=== PATIENT | female | born 1965 | race Caucasian/White ===

== ENCOUNTER → 2016-07-03 | Day surgery (SDC) | payer BC ==
[~2016-07-03] MED LIST: HYDROCHLOROTHIA25 MG PO; MULTI VITAMIN1 EACH PO; NEXIUM 24HR22.3 MG PO; TENORMIN25 MG PO
--- NOTE | ~2016-07-03 | OR ---
Unit #: [id number] #: [id number] Patient: DEE RODRÍGUEZ [id number] [address] [place], [place] [address] [id number] MR#: [id number] NAME: DEE RODRÍGUEZ ROOM: Date of Procedure: 07/03/2016 Admission Date: 07/03/2016 Surgeon: Ortiz Pierce M.D. : 1965 Attending Physician: Ortiz Pierce M.D. Primary Care Physician: Rodney Lopez M.D. OPERATIVE REPORT PREOPERATIVE DIAGNOSES Colorectal cancer screening in an average-risk patient. PROCEDURES PERFORMED Colonoscopy up to cecum and terminal ileum with excellent preparation and good visualization. POSTOPERATIVE DIAGNOSES The patient with mild sigmoid diverticulosis, otherwise examination was normal up to cecum. The quality of prep was excellent. No polyps were seen. RECOMMENDATIONS Repeat colonoscopy in 10 years. SEDATION USED MAC. DESCRIPTION OF PROCEDURE Following detailed explanation of the potential risks and complications of a colonoscopy, namely perforation, bleeding, and complication related to sedation, the patient was brought to GI lab and laid in the left lateral decubitus position. A digital rectal examination was performed, which was normal. Lubricated tip of the Olympus video colonoscope was inserted through the anus and advanced under direct vision. The scope was advanced and passed up to the sigmoid into descending colon. Multiple small diverticula were seen in this area. The scope tip was then navigated all the way up to the cecum with visualization of the ileocecal valve and the appendiceal orifice. Preparation was excellent with good visualization, and photodocumentation was obtained. Last several inches of the terminal ileum also visualized after intubation of the ileocecal valve and appeared normal. Successive segments of the colonic mucosa were examined upon withdrawal and appeared unremarkable. There being no polyps, mass lesions, or AVMs. Other than the scant diverticula seen in the left side, no other abnormalities were noted. The scope was then withdrawn all the way up to the pharynx. No additional findings noted. The patient tolerated the procedure without any postprocedure complications. Dictated by... Ortiz Pierce M.D. Unit #: [id number] #: [id number] Patient: DEE RODRÍGUEZ AK/eyad TD: 07/03/2016 14:21 JOB #: [id number] OPERATIVE REPORT Page 1 of 1 X Ortiz Pierce MD PROCEDURE OPERATIVE NOTE
== END | disposition home or self-care (01) ==
LOC: COPS 08:48
PROVIDERS: Internal Medicine Gastroenterology
PROC: 0DJD8ZZ Inspection of Lower Intestinal Tract, Via Natural or Artificial Opening Endoscopic (ICD-10-PCS; principal; 2016-07-03 11:00)
DX: Z12.11 Encounter for screening for malignant neoplasm of colon (principal); K57.30 Diverticulosis of large intestine without perforation or abscess without bleeding; K21.9 Gastro-esophageal reflux disease without esophagitis; I10 Essential (primary) hypertension; Z79.899 Other long term (current) drug therapy; F17.200 Nicotine dependence, unspecified, uncomplicated; Z88.8 Allergy status to other drugs, medicaments and biological substances
CPT/HCPCS: J2250